=== PATIENT | female | born 1955 | race Caucasian/White ===

== ENCOUNTER 2016-08-18 12:41 | Emergency (ER) | payer OTHER ==
[2016-08-18 13:03] VITALS: BP 155/89; PULSE 85; RESP 16; TEMP 98.2; O2SAT 95
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
== END 2016-08-18 13:25 | disposition home or self-care (01) ==
LOC: CED 12:41
DX: B02.9 Zoster without complications (principal)
CPT/HCPCS: 99204-PO; G0463-PO